=== PATIENT | male | born 1975 | race Caucasian/White ===

== ENCOUNTER 2016-07-30 18:41 | Emergency (ER) | payer OTHER ==
[~2016-07-30] VITALS: Ht 188 cm; Wt 90.5 kg
[2016-07-30 18:55] VITALS: BP 124/78; PULSE 105; RESP 18; TEMP 97.8; O2SAT 100
[2016-07-30 18:57] VITALS: RESP 18; O2SAT 100
[2016-07-30] MEDS ORDERED: DOXY100C PO (18:59)
[2016-07-30] MEDS ORDERED: EPINEPHrine HCL (1:1000) 1 MG/ML VIAL ONE (19:03)
[2016-07-30] MEDS ORDERED: SODIUM CHLORIDE 0.9% FLUSH 5 ML FLUSH IVF PRN (19:15)
[2016-07-30] MEDS ORDERED: EPINEPHrine HCL (1:1000) 1 MG/ML VIAL IM ONE (19:15)
[2016-07-30] MEDS ORDERED: FAMOTIDINE 20 MG/2 ML VIAL IV PUSH ONE (19:15)
[2016-07-30] MEDS ORDERED: diphenhydrAMINE HCL 50 MG/ML VIAL IVP ONE (19:15)
[2016-07-30] MEDS ORDERED: methylPREDNISolone SOD SUCC 125 MG/2 ML VIAL IVP ONE (19:15)
--- NOTE | 2016-07-30 19:20 | PD ---
HPI Chief Complaint: Allergic/Adverse Reaction Time Seen by Provider: 19:13 Travel History International Travel<30 days: No Contact w/Intl Traveler<30days: No Traveled to known affect area: No History of Present Illness HPI The patient is a 40-year-old male who has no known allergies who ate seafood about 3:30 PM today and 2 hours later began having nausea, diarrhea and a pruritic erythematous rash over the entire body. At about 6 PM tonight he took 225 mg Benadryl tablets. He still complains of itching. He denies any shortness of breath, chest pain or wheezing. He denies any syncopal or near syncopal spells. He denies any history of heart disease or diabetes. He has been taking doxycycline 100 mg twice daily for a skin infection. 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 [facility] Social History Tobacco Use: Yes Allergies-Medications (Allergen,Severity, Reaction): Coded Allergies: No Known Allergies (Unverified , 07/30/16) Reported Meds & Prescriptions Reported Meds & Active Scripts Active Zantac (Ranitidine HCl) 150 Mg Tab 150 Mg PO BID Benadryl Allergy (Diphenhydramine HCl) 25 Mg Tab 25 Mg PO Q6H PRN Prednisone 50 Mg Tab 50 Mg PO DAILY 5 Days Reported Doxycycline Hyclate 100 Mg Cap 100 Mg PO BID Review of Systems Except as stated in HPI: all other systems reviewed are Neg Physical Exam Narrative GENERAL: The patient is alert, oriented 3 in moderate apparent distress with his pruritic rash which is generalized. He is in no respiratory distress. SKIN: Warm and dry. There is an erythematous rash over the entire body. This rash is very pruritic. HEAD: Atraumatic. Normocephalic. EYES: Pupils equal and round. No scleral icterus. No injection or drainage. ENT: No nasal bleeding or discharge. Mucous membranes pink and moist. NECK: Trachea midline. No JVD. CARDIOVASCULAR: Regular rate and rhythm. No murmur appreciated. RESPIRATORY: No accessory muscle use. Clear to auscultation. Breath sounds equal bilaterally. GASTROINTESTINAL: Abdomen soft, non-tender, nondistended. Hepatic and splenic margins not palpable. MUSCULOSKELETAL: No obvious deformities. No clubbing. No cyanosis. No edema. NEUROLOGICAL: Awake and alert. No obvious cranial nerve deficits. Motor grossly within normal limits. Normal speech. PSYCHIATRIC: Appropriate mood and affect; insight and judgment normal. Data Data Last Documented VS Vital Signs Date Time Temp Pulse Resp B/P Pulse Ox O2 Delivery O2 Flow Rate FiO2 07/30/16 18:57 105 18 100 Room Air 07/30/16 18:55 97.8 124/78 Orders Epinephrine (1:1000) Inj (Adrenalin (1:1 (07/30/16 19:03) Ecg Monitoring (07/30/16 19:02) Iv Access Insert/Monitor (07/30/16 19:02) Oximetry (07/30/16 19:02) Diphenhydramine Inj (Benadryl Inj) (07/30/16 19:15) Methylprednisolone So Succ Inj (Solumedr (07/30/16 19:15) Famotidine Inj (Pepcid Inj) (07/30/16 19:15) Sodium Chloride 0.9% Flush (Ns Flush) (07/30/16 19:15) Epinephrine (1:1000) Inj (Adrenalin (1:1 (07/30/16 19:15) MDM Medical Decision Making Medical Screen Exam Complete: Yes Emergency Medical Condition: Yes Medical Record Reviewed: Yes Differential Diagnosis Allergic reaction, cellulitisunlikely, food allergy to seafood, allergy to doxycycline, Narrative Course It is now 0740 and the patient feels much better and wants to go home. He will need a 4 day work excuse because he cannot drive back to [place] like he planned tonight. He is given Benadryl, prednisone and Zantac prescriptions. If this is a recurrent allergy should follow-up with an artillery officer back in [place]. Diagnosis Primary Impression: Allergic reaction to food Additional Impression: Seafood allergy Additional Instructions: I agree that you appear to be allergic to seafood. The timing is perfectly and the symptoms are cardiac. I do not think you're allergic to doxycycline. Med/Other Pt SpecificInfo: Prescription(s) given Scripts Ranitidine (Zantac)150 Mg [id number] Mg PO BID #45 TAB Ref 0 Prov:Jace Rick MD 07/30/16 Diphenhydramine (Benadryl Allergy)25 Mg Tab25 Mg PO Q6H PRN (ALLERGIES) #40 TAB Ref 0 Prov:Jace Rick MD 07/30/16 Prednisone 50 Mg Tab50 Mg PO DAILY 5 Days Ref 0 Prov:Jace Rick MD 07/30/16 Disposition: 01 DISCHARGE HOME Condition: Stable Jace Rick MD Jul 30, 2016 19:20
[2016-07-30] MEDS ORDERED: PRED50 PO (19:33)
[2016-07-30] MEDS ORDERED: ZANT150T2 PO (19:33)
[2016-07-30] MEDS ORDERED: BENA25TA3 PO (19:33)
[2016-07-30 20:08] VITALS: BP 125/67
== END 2016-07-30 20:09 | disposition home or self-care (01) ==
LOC: PHED 18:41
DX: L27.2 Dermatitis due to ingested food (principal); Z91.013 Allergy to seafood
CPT/HCPCS: 96372; 96374; 96375; 99283; J0171; J1200; J2930